=== PATIENT | male | born 1955 ===

== ENCOUNTER 2021-08-30 00:14 | Inpatient (IN) | payer MEDICARE ==
[2021-08-30 00:36] VITALS: BMI 42.7
[2021-08-30] MEDS ORDERED: Calcium Carbonate 500 MG ChewTAB PO PRN (00:54)
[2021-08-30] MEDS ORDERED: Zolpidem Tartrate 5 MG TAB PO PRN (00:54)
[2021-08-30] MEDS ORDERED: Senokot S 8.6-50 MG TAB PO PRN (00:54)
[2021-08-30] MEDS ORDERED: Acetaminophen 325 MG TAB PO PRN (00:54)
[2021-08-30] MEDS ORDERED: Guaifenesin DM 100-10/5 ML UDCUP PO PRN (00:54)
[2021-08-30] MEDS ORDERED: Ondansetron PF 4 MG/2 ML Vial IVP PRN (00:54)
[2021-08-30] MEDS ORDERED: Morphine 4 MG/ML VIAL SLOW IVP PRN (00:56)
[2021-08-30] MEDS: Lactated Ringer's 1,000 ML IV SCH ×3 (01:23→19:20)
[2021-08-30] MEDS: HYDROmorphone 0.5 MG/0.5 ML SYRINGE SLOW IVP PRN ×2 (01:24→12:38)
[2021-08-30 04:26] LABS: Hemoglobin 12.8 g/dL (13.5-17.5); Mean Corpuscular HGB CONC 32.4 g/dL (32.0-36.0); Mean Corpuscular Hemoglobin 29.6 pg (27.0-33.0); Mean Corpuscular Volume 91.4 fl (81.2-95.1); Mean Platelet Volume 11.3 fl (7.4-10.4); Platelet Count 256 10x3/uL (150-450); RBC Distribution Width 13.2 % (11.5-14.5); Red Blood Cell (RBC) Count 4.32 10x6/uL (4.32-5.72); White Blood Cell (WBC) Count 20.7 10x3/uL (3.5-10.5)
[2021-08-30 04:34] LABS: ALT (SGPT) 15 U/L (8-55); AST (SGOT) 14 U/L (5-34); Albumin 3.8 g/dL (3.4-4.8); Alkaline Phosphatase 71 U/L (40-110); Anion Gap 14 mmol/L (10-20); BUN (Urea Nitrogen) 17 mg/dL (8.4-25.7); Bilirubin, Total 0.7 mg/dL (0.2-1.2); Calc. Creatinine Clearance 152 mL/min (70-130); Calcium 8.9 mg/dL (7.8-10.44); Carbon Dioxide 25 mmol/L (23-31); Cardiac Risk 3.5 (Less than 4.5); Chloride 104 mmol/L (98-107); Cholesterol 130 mg/dl (< 200 Desired); Globulin 3.4 g/dL (2.4-3.5); Glucose 105 mg/dL (80-115); HDL Cholesterol 37 mg/dL (>60 Neg Risk); LDL Cholesterol, Calculated 79 mg/dL; Lipase 254 U/L (8-78); Potassium 4.1 mmol/L (3.5-5.1); Protein, Total 7.2 g/dL (5.8-8.1); Sodium 139 mmol/L (136-145); Triglycerides 69 mg/dL (Less than 150)
[2021-08-30 05:30] LABS: MDiff Complete? YES
[2021-08-30 05:35] LABS: Band 1 % (5-11); Lymphocytes 5 % (21-51); Monocytes 8 % (0-10); Neutrophil 84 % (42-75); Reactive Lymphocytes 2 % (0-10)
[2021-08-30 05:37] LABS: Platelet Morphology Comment Appears Adequate; RBC Morphology Normal
[2021-08-30] MEDS ORDERED: Famotidine/PF 20 mg/2ml Vial SLOW IVP SCH (09:00)
[2021-08-30] MEDS: Amlodipine 5 MG TAB PO SCH (09:35)
[2021-08-30] MEDS: Losartan 25 MG TAB PO SCH (09:36)
[2021-08-30] MEDS: Enoxaparin Sodium 40 MG/0.4 ML SYRINGE SC SCH (09:36)
[2021-08-30] MEDS: Morphine 4 MG/ML VIAL SLOW IVP PRN (09:37)
[2021-08-30] MEDS: Venlafaxine XR 37.5 MG CAP PO SCH (09:37)
[2021-08-30] MEDS: Primidone 50 MG TAB PO SCH (09:37)
[2021-08-30 17:00] LABS: Hemoglobin 12.9 g/dL (13.5-17.5); MDiff Complete? YES; Mean Corpuscular HGB CONC 32.7 g/dL (32.0-36.0); Mean Corpuscular Hemoglobin 29.5 pg (27.0-33.0); Mean Corpuscular Volume 90.2 fl (81.2-95.1); Platelet Count 225 10x3/uL (150-450); RBC Distribution Width 13.2 % (11.5-14.5); Red Blood Cell (RBC) Count 4.37 10x6/uL (4.32-5.72); White Blood Cell (WBC) Count 23.5 10x3/uL (3.5-10.5)
[2021-08-30] MEDS: HYDROcodone/Acetaminophen 5/325 mg Tablet PO PRN ×2 (17:09→21:01)
[2021-08-30 17:24] LABS: Eosinophils 1 % (0-10); Lymphocytes 6 % (21-51); Monocytes 9 % (0-10); Neutrophil 84 % (42-75); Platelet Morphology Comment Appears Adequate
[2021-08-30] MEDS ORDERED: Piperacillin/Tazobactam 3.375 GM in Sodium Chloride 0.9% 100 ML IVPB SCH (18:00)
[2021-08-30] MEDS: Atorvastatin Calcium 20 MG TAB PO SCH (21:00)
[2021-08-30] MEDS: Tamsulosin HCl 0.4 MG CAP PO SCH (21:00)
[2021-08-30] MEDS ORDERED: Sodium Chloride 0.9% 1,000 ML IV SCH (21:15)
[2021-08-31] MEDS: Lactated Ringer's 1,000 ML IV SCH ×5 (00:10→15:31)
[2021-08-31] MEDS: Morphine 4 MG/ML VIAL SLOW IVP PRN (01:32)
[2021-08-31] MEDS: Piperacillin/Tazobactam 3.375 GM in Sodium Chloride 0.9% 100 ML IVPB SCH ×3 (01:33→17:51)
[2021-08-31 05:50] LABS: ALT (SGPT) 14 U/L (8-55); AST (SGOT) 19 U/L (5-34); Albumin 3.7 g/dL (3.4-4.8); Alkaline Phosphatase 75 U/L (40-110); Anion Gap 14 mmol/L (10-20); BUN (Urea Nitrogen) 17 mg/dL (8.4-25.7); Calc. Creatinine Clearance 161 mL/min (70-130); Calcium 9.1 mg/dL (7.8-10.44); Carbon Dioxide 24 mmol/L (23-31); Chloride 104 mmol/L (98-107); Globulin 3.6 g/dL (2.4-3.5); Glucose 104 mg/dL (80-115); Lipase 61 U/L (8-78); Potassium 3.7 mmol/L (3.5-5.1); Protein, Total 7.3 g/dL (5.8-8.1); Sodium 138 mmol/L (136-145)
[2021-08-31] MEDS: HYDROcodone/Acetaminophen 5/325 mg Tablet PO PRN ×5 (05:53→20:45)
[2021-08-31 06:18] LABS: Hemoglobin 12.6 g/dL (13.5-17.5); MDiff Complete? YES; Mean Corpuscular HGB CONC 32.8 g/dL (32.0-36.0); Mean Corpuscular Hemoglobin 29.7 pg (27.0-33.0); Mean Corpuscular Volume 90.6 fl (81.2-95.1); Mean Platelet Volume 12.3 fl (7.4-10.4); Platelet Count 220 10x3/uL (150-450); RBC Distribution Width 13.2 % (11.5-14.5); Red Blood Cell (RBC) Count 4.24 10x6/uL (4.32-5.72); White Blood Cell (WBC) Count 20.1 10x3/uL (3.5-10.5)
[2021-08-31 06:26] LABS: Band 1 % (5-11); Lymphocytes 7 % (21-51); Monocytes 6 % (0-10); Neutrophil 82 % (42-75); Reactive Lymphocytes 3 % (0-10)
[2021-08-31] MEDS: Amlodipine 5 MG TAB PO SCH (10:12)
[2021-08-31] MEDS: Losartan 25 MG TAB PO SCH (10:13)
[2021-08-31] MEDS: Enoxaparin Sodium 40 MG/0.4 ML SYRINGE SC SCH (10:13)
[2021-08-31] MEDS: Venlafaxine XR 37.5 MG CAP PO SCH (10:13)
[2021-08-31] MEDS: Pantoprazole 40 MG VIAL IVP SCH (10:13)
[2021-08-31] MEDS: Primidone 50 MG TAB PO SCH (10:13)
[2021-08-31] MEDS: Tamsulosin HCl 0.4 MG CAP PO SCH (20:45)
[2021-08-31] MEDS: Atorvastatin Calcium 20 MG TAB PO SCH (20:45)
[2021-09-01] MEDS: Piperacillin/Tazobactam 3.375 GM in Sodium Chloride 0.9% 100 ML IVPB SCH ×2 (02:19→10:12)
[2021-09-01] MEDS: HYDROcodone/Acetaminophen 5/325 mg Tablet PO PRN ×4 (02:27→21:13)
[2021-09-01] MEDS: Lactated Ringer's 1,000 ML IV SCH ×4 (04:05→20:06)
[2021-09-01 04:30] LABS: Anion Gap 15 mmol/L (10-20); BUN (Urea Nitrogen) 19 mg/dL (8.4-25.7); Calc. Creatinine Clearance 170 mL/min (70-130); Calcium 9.1 mg/dL (7.8-10.44); Carbon Dioxide 25 mmol/L (23-31); Chloride 104 mmol/L (98-107); Glucose 79 mg/dL (80-115); Potassium 3.6 mmol/L (3.5-5.1); Sodium 140 mmol/L (136-145)
[2021-09-01 04:46] LABS: #Basophils 0.1 10x3/uL (0.0-0.2); #Eosinphils 0.5 10x3/uL (0.0-0.5); #Monocytes 1.2 10x3/uL (0.0-1.1); #Neutrophils 11.8 10x3/uL (1.5-8.4); %Basophils 0.4 % (0.0-2.0); %Eosinophils 3.4 % (0.0-6.0); %Lymphocytes 10.4 % (18.0-47.0); %Monocytes 8.1 % (0.0-10.0); %Neutrophils 77.3 % (40.0-75.0); Hemoglobin 12.3 g/dL (13.5-17.5); Mean Corpuscular HGB CONC 32.9 g/dL (32.0-36.0); Mean Corpuscular Hemoglobin 29.7 pg (27.0-33.0); Mean Corpuscular Volume 90.3 fl (81.2-95.1); Mean Platelet Volume 12.1 fl (7.4-10.4); Platelet Count 211 10x3/uL (150-450); Red Blood Cell (RBC) Count 4.14 10x6/uL (4.32-5.72); White Blood Cell (WBC) Count 15.3 10x3/uL (3.5-10.5)
[2021-09-01] MEDS: Amlodipine 5 MG TAB PO SCH (10:10)
[2021-09-01] MEDS: Pantoprazole 40 MG VIAL IVP SCH (10:11)
[2021-09-01] MEDS: Losartan 25 MG TAB PO SCH (10:11)
[2021-09-01] MEDS: Venlafaxine XR 37.5 MG CAP PO SCH (10:11)
[2021-09-01] MEDS: Primidone 50 MG TAB PO SCH (10:11)
[2021-09-01] MEDS: Enoxaparin Sodium 40 MG/0.4 ML SYRINGE SC SCH (10:11)
[2021-09-01] MEDS: Tamsulosin HCl 0.4 MG CAP PO SCH (20:07)
[2021-09-01] MEDS: Atorvastatin Calcium 20 MG TAB PO SCH (20:07)
[2021-09-02] MEDS: Lactated Ringer's 1,000 ML IV SCH ×2 (02:34→09:29)
[2021-09-02 04:39] LABS: #Basophils 0.1 10x3/uL (0.0-0.2); #Eosinphils 0.4 10x3/uL (0.0-0.5); #Monocytes 0.8 10x3/uL (0.0-1.1); #Neutrophils 6.9 10x3/uL (1.5-8.4); %Basophils 0.5 % (0.0-2.0); %Eosinophils 4.3 % (0.0-6.0); %Lymphocytes 14.4 % (18.0-47.0); %Monocytes 8.7 % (0.0-10.0); %Neutrophils 71.7 % (40.0-75.0); Hemoglobin 11.9 g/dL (13.5-17.5); Mean Corpuscular HGB CONC 33.2 g/dL (32.0-36.0); Mean Corpuscular Hemoglobin 29.8 pg (27.0-33.0); Mean Corpuscular Volume 89.7 fl (81.2-95.1); Mean Platelet Volume 11.9 fl (7.4-10.4); Platelet Count 239 10x3/uL (150-450); RBC Distribution Width 12.9 % (11.5-14.5); Red Blood Cell (RBC) Count 3.99 10x6/uL (4.32-5.72); White Blood Cell (WBC) Count 9.7 10x3/uL (3.5-10.5)
[2021-09-02 05:01] LABS: Anion Gap 13 mmol/L (10-20); BUN (Urea Nitrogen) 15 mg/dL (8.4-25.7); Calc. Creatinine Clearance 176 mL/min (70-130); Calcium 8.8 mg/dL (7.8-10.44); Carbon Dioxide 24 mmol/L (23-31); Chloride 105 mmol/L (98-107); Glucose 75 mg/dL (80-115); Lipase 41 U/L (8-78); Potassium 3.2 mmol/L (3.5-5.1); Sodium 139 mmol/L (136-145)
[2021-09-02] MEDS ORDERED: Venlafaxine HCl XR 75 MG CAP PO SCH (09:00)
[2021-09-02] MEDS ORDERED: Tamsulosin HCl 0.4 MG CAP PO SCH (09:00)
[2021-09-02] MEDS ORDERED: Atorvastatin Calcium 20 MG TAB PO SCH (09:00)
[2021-09-02] MEDS: Amlodipine 5 MG TAB PO SCH (09:20)
[2021-09-02] MEDS: Enoxaparin Sodium 40 MG/0.4 ML SYRINGE SC SCH (09:20)
[2021-09-02] MEDS: Primidone 50 MG TAB PO SCH (09:20)
[2021-09-02] MEDS: Losartan 25 MG TAB PO SCH (09:20)
[2021-09-02] MEDS: Pantoprazole 40 MG VIAL IVP SCH (09:21)
[2021-09-02 12:44] VITALS: BP 143/77; TEMP 98.4
== END 2021-09-02 15:55 | disposition home or self-care (01) | DRG 439 ==
LOC: CSHTELE 00:14
PROVIDERS: ADMIT Student in an Organized Health Care Education/Training Program; ATTEND Internal Medicine
DX: K85.90 Acute pancreatitis without necrosis or infection, unspecified (principal); R65.10 Systemic inflammatory response syndrome (SIRS) of non-infectious origin without acute organ dysfunction; Z68.41 Body mass index [BMI] 40.0-44.9, adult; I10 Essential (primary) hypertension; E78.5 Hyperlipidemia, unspecified; N40.0 Benign prostatic hyperplasia without lower urinary tract symptoms; E78.2 Mixed hyperlipidemia; F32.A Depression, unspecified; G25.0 Essential tremor; G47.33 Obstructive sleep apnea (adult) (pediatric); R91.1 Solitary pulmonary nodule; E66.01 Morbid (severe) obesity due to excess calories; Z96.652 Presence of left artificial knee joint; Z90.49 Acquired absence of other specified parts of digestive tract; Z87.442 Personal history of urinary calculi
CPT/HCPCS: 36415; 71045; 71260; 74177; 80048; 80053; 80061; 83690; 85025; 87040; C9113; J1170; J1650; J2270; J2543; J3490; J7120; S0028